=== PATIENT | male | born 1960 | race Caucasian/White ===

== ENCOUNTER 2021-01-02 13:54 | Outpatient (CLI) | payer OTHER, SELFPAY | END 2021-01-02 13:55 | disposition home or self-care (01) | PROVIDERS: PCP Family Medicine; Visit Provider Family Medicine | DX: H91.93 Unspecified hearing loss, bilateral (principal) | CPT/HCPCS: 92557; 92567 ==

== ENCOUNTER 2021-02-10 11:00 | Outpatient (RCR) | payer OTHER, SELFPAY | END 2021-04-23 23:59 | disposition home or self-care (01) | LOC: ANHBWCAUD 11:00 | PROVIDERS: PCP Family Medicine; Visit Provider Family Medicine | DX: Z46.1 Encounter for fitting and adjustment of hearing aid (principal) | CPT/HCPCS: 99199; V5160; V5261 ==

== ENCOUNTER 2021-09-25 08:19 | Outpatient (RCR) | payer OTHER, SELFPAY | END 2021-12-24 23:59 | disposition home or self-care (01) | LOC: ANHBWCAUD 08:19 | PROVIDERS: PCP Family Medicine; Visit Provider Family Medicine | DX: Z46.1 Encounter for fitting and adjustment of hearing aid (principal) | CPT/HCPCS: 99199 ==